=== PATIENT | female | born 1975 | race Caucasian/White ===

== ENCOUNTER 2021-01-24 08:49 | Outpatient (CLI) | payer OTHER ==
[2021-01-24] MEDS ORDERED: LIDOCAINE 1%, 20ML ONE (09:00)
== END 2021-01-24 23:59 | disposition home or self-care (01) ==
LOC: RAD 08:49
PROVIDERS: ATTEND Internal Medicine Hematology & Oncology
DX: Z45.2 Encounter for adjustment and management of vascular access device (principal); C50.919 Malignant neoplasm of unspecified site of unspecified female breast
CPT/HCPCS: 36573; C1751; J3490